=== PATIENT | female | born 1960 | race Two or more races ===

== ENCOUNTER 2021-06-01 05:51 | Day surgery (SDC) | payer OTHER ==
[~2021-06-01 05:51] MED LIST: AMBIEN10 MG PO; GRALISE600 MG PO; ZETIA10 MG PO
== END 2021-06-01 13:10 | disposition home or self-care (01) ==
LOC: CIR.AMB 05:51
PROVIDERS: ATTEND Orthopaedic Surgery Hand Surgery
DX: G56.01 Carpal tunnel syndrome, right upper limb (principal)

== ENCOUNTER 2021-08-10 06:02 | Day surgery (SDC) | payer OTHER ==
[~2021-08-10] VITALS: Ht 154.9 cm; Wt 64.9 kg
[~2021-08-10 06:02] MED LIST changes: +ADULT LOW DOSE81 M1 PO; +ALENDRONATE SOD70 MG PO; +ATORVASTATIN CA10 MG PO; +ZANAFLEX2 M1 PO
== END 2021-08-10 11:05 | disposition home or self-care (01) ==
LOC: CIR.AMB 06:02
PROVIDERS: ATTEND Orthopaedic Surgery Hand Surgery
DX: G56.01 Carpal tunnel syndrome, right upper limb (principal); Z20.822 Contact with and (suspected) exposure to COVID-19; Z87.891 Personal history of nicotine dependence; Z87.442 Personal history of urinary calculi; M19.90 Unspecified osteoarthritis, unspecified site; Z79.82 Long term (current) use of aspirin